=== PATIENT | male | born 1950 | race Caucasian/White ===

== ENCOUNTER 2019-10-26 10:19 | Day surgery (SDC) | payer OTHER ==
[~2019-10-26] VITALS: Ht 182.9 cm; Wt 91.0 kg
[~2019-10-26 10:19] MED LIST: Amiodarone HCl400 MG PT; BISA5EC PO; Chloraseptic177 ML PO; DILTIAZEM PT; FURO100EL PT; FURO20 PO; GAVILAX17 GM PO; LAVAP17G PO; LORA.5 PO; OXYC1L PT; Ondansetron Odt8 MG SL; POTCHL20ER PO; PROM25 PO; Prinivil10 MG PO; Viagra100 MG PO
== END 2019-10-26 12:55 | disposition home or self-care (01) ==
LOC: ORSCSDS 10:19
PROVIDERS: Internal Medicine Gastroenterology
PROC: 0DBP8ZX Excision of Rectum, Via Natural or Artificial Opening Endoscopic, Diagnostic (ICD-10-PCS; principal; 2019-10-26 11:45)
PROC: 0DB58ZX Excision of Esophagus, Via Natural or Artificial Opening Endoscopic, Diagnostic (ICD-10-PCS; principal; 2019-10-26 11:45)
PROC: 0DBH8ZX Excision of Cecum, Via Natural or Artificial Opening Endoscopic, Diagnostic (ICD-10-PCS; principal; 2019-10-26 11:45)
PROC: 0DBK8ZX Excision of Ascending Colon, Via Natural or Artificial Opening Endoscopic, Diagnostic (ICD-10-PCS; principal; 2019-10-26 11:45)
PROC: 0DBM8ZX Excision of Descending Colon, Via Natural or Artificial Opening Endoscopic, Diagnostic (ICD-10-PCS; principal; 2019-10-26 11:45)
DX: R19.5 Other fecal abnormalities (principal); D12.2 Benign neoplasm of ascending colon; D12.0 Benign neoplasm of cecum; D12.4 Benign neoplasm of descending colon; D12.8 Benign neoplasm of rectum; Z85.01 Personal history of malignant neoplasm of esophagus; B37.81 Candidal esophagitis; G47.33 Obstructive sleep apnea (adult) (pediatric); I10 Essential (primary) hypertension; J44.9 Chronic obstructive pulmonary disease, unspecified; Z87.891 Personal history of nicotine dependence
CPT/HCPCS: 88305; 88312; J2704; J7120